=== PATIENT | female | born 1995 | race Caucasian/White ===

== ENCOUNTER 2018-11-29 12:04 | Emergency (ER) | payer OTHER ==
[~2018-11-29] VITALS: Ht 162.6 cm; Wt 59.0 kg
[2018-11-29 12:10] VITALS: BP 149/93
[2018-11-29] MEDS ORDERED: HYDROcodone/APAP 5/325MG 1 TAB TABLET PO ONE (12:30)
[2018-11-29] MEDS ORDERED: tiZANidine 4 MG TABLET. PO ONE (12:30)
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
[2018-11-29] MEDS: ACETAMINOPHEN 325 MG TABLET. PO ONE (13:07)
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
[2018-11-29] MEDS ORDERED: HYDR-3164 PO (14:12)
[2018-11-29] MEDS ORDERED: ORPH100T PO (14:12)
== END 2018-11-29 14:21 | disposition home or self-care (01) ==
LOC: ER 12:04
DX: S16.1XXA Strain of muscle, fascia and tendon at neck level, initial encounter (principal); S29.012A Strain of muscle and tendon of back wall of thorax, initial encounter; V43.52XA Car driver injured in collision with other type car in traffic accident, initial encounter; Y93.89 Activity, other specified; Y92.410 Unspecified street and highway as the place of occurrence of the external cause; Y99.8 Other external cause status
CPT/HCPCS: 70450; 72125; 72128; 81025; 99284-25